=== PATIENT | female | born 1990 | race Caucasian/White ===

== ENCOUNTER 2018-12-18 19:54 | Emergency (ER) | payer SELFPAY ==
[~2018-12-18] VITALS: Ht 152.4 cm; Wt 73.9 kg
[~2018-12-18 19:54] MED LIST: ABILIFY5 MG PO; CEPHALEXIN500 MG PO; CLINDAMYCIN HC300 MG PO; CRUTCH1 EACH; CYCLOBENZAPRINE10 MG PO; DEPO-PROVE150 MG/1 M IM; DOXYCYCLINE HY100 MG PO; IBUPROFEN600 MG PO; NAPROXEN500 MG PO; NEXPLANON; NORCO 5-325 TA1 EACH PO; PROZAC20 MG PO
[2018-12-18] MEDS ORDERED: PROZAC40 MG PO (20:19)
[2018-12-18] MEDS ORDERED: ABILIFY15 MG PO (20:19)
== END 2018-12-18 20:47 | disposition home or self-care (01) ==
LOC: ED 19:54
DX: S76.012A Strain of muscle, fascia and tendon of left hip, initial encounter (principal); S80.01XA Contusion of right knee, initial encounter; W22.8XXA Striking against or struck by other objects, initial encounter; F32.9 Major depressive disorder, single episode, unspecified; F41.9 Anxiety disorder, unspecified; F17.200 Nicotine dependence, unspecified, uncomplicated; Z88.5 Allergy status to narcotic agent; Z79.899 Other long term (current) drug therapy
CPT/HCPCS: 73560; 99283

== ENCOUNTER 2020-05-24 12:59 | Emergency (ER) | payer OTHER ==
[~2020-05-24] VITALS: Ht 152.4 cm; Wt 74.8 kg
[~2020-05-24 12:59] MED LIST changes: +ABILIFY15 MG PO; +HYDROXYZINE HCL50 MG PO; +MEDROXYPRO150 MG/11 IM; +PROZAC40 MG PO
[2020-05-24] MEDS ORDERED: BUSPIRONE HCL5 MG PO (13:08)
== END 2020-05-24 14:43 | disposition home or self-care (01) ==
LOC: ED 12:59
DX: S60.221A Contusion of right hand, initial encounter (principal); F32.9 Major depressive disorder, single episode, unspecified; F41.9 Anxiety disorder, unspecified; F17.200 Nicotine dependence, unspecified, uncomplicated; Z88.5 Allergy status to narcotic agent; Z79.899 Other long term (current) drug therapy; W01.0XXA Fall on same level from slipping, tripping and stumbling without subsequent striking against object, initial encounter
CPT/HCPCS: 29125; 73110; 99283-25

== ENCOUNTER 2021-01-03 15:03 | Inpatient (IN) | payer OTHER ==
[~2021-01-03] VITALS: Ht 154.9 cm; Wt 71.4 kg
[~2021-01-03 15:03] MED LIST changes: +BUSPIRONE HCL5 MG PO
[2021-01-03] MEDS ORDERED: PRAZOSIN HCL2 MG PO (15:20)
[2021-01-03] MEDS ORDERED: FLUOXETINE HCL60 MG PO (15:21)
[2021-01-04] MEDS ORDERED: REXULTI1 MG PO (09:50)
[2021-01-04] MEDS ORDERED: ARIPIPRAZOLE30 MG PO (09:51)
[2021-01-04] MEDS ORDERED: BUSPIRONE HCL15 MG PO (09:52)
--- NOTE | 2021-01-04 12:01 | EKG ---
[facility] [address] [facility] [place] [address] Signed Sinus tachycardia Prolonged QT Abnormal ECG No previous ECGs available Confirmed by CINDY VALERIO MD ([id number]) on 01/04/2021 12:01:33 PM Electronically Signed By: CINDY VALERIO MD 01/04/21 1201 PATIENT NAME: ELEAN FOSTER Electrocardiogram DATE OF : 86 PHYSICIAN: CINDY VALERIO MD REPORT #: [id number] REPORT IS CONFIDENTIAL AND NOT TO BE RELEASED WITHOUT AUTHORIZATION
[2021-01-06] MEDS ORDERED: CEFTRIAXONE2 G1 IV (13:04)
[2021-01-06] MEDS ORDERED: ALBUTEROL2.5 MG/3 M INH (13:05)
== END 2021-01-06 14:43 | disposition short-term general hospital (02) | DRG 208 ==
LOC: ED 15:03 → MS 19:02 → CCU 01-05 19:14
PROVIDERS: ADMIT Internal Medicine; ATTEND Internal Medicine
PROC: 0BH17EZ Insertion of Endotracheal Airway into Trachea, Via Natural or Artificial Opening (ICD-10-PCS; principal; 2021-01-06)
PROC: 5A1935Z Respiratory Ventilation, Less than 24 Consecutive Hours (ICD-10-PCS; 2021-01-06)
DX: J15.4 Pneumonia due to other streptococci (principal); J80 Acute respiratory distress syndrome; N17.9 Acute kidney failure, unspecified; Z20.822 Contact with and (suspected) exposure to COVID-19; N14.1 Nephropathy induced by other drugs, medicaments and biological substances; T50.8X5A Adverse effect of diagnostic agents, initial encounter; R79.89 Other specified abnormal findings of blood chemistry; F41.8 Other specified anxiety disorders; Y92.239 Unspecified place in hospital as the place of occurrence of the external cause; Z91.14 Patient's other noncompliance with medication regimen; Z88.5 Allergy status to narcotic agent; Z79.899 Other long term (current) drug therapy; Z87.891 Personal history of nicotine dependence
CPT/HCPCS: 31500; 36415; 36600; 71045; 71260; 80048; 80053; 82570; 82803; 83605; 83880; 84300; 84703; 85025; 85379; 87040; 93005; 93010; 94002; 94640; 94660; 94667; 94668; 94760; 94762; 94799; 99285-25; C9803; J0330; J0456; J0696; J1650; J1940; J2001; J2250; J2550; J2704; J3370; J3480; J7060; Q9967; U0003

== ENCOUNTER 2023-02-12 20:12 | Emergency (ER) | payer OTHER ==
[~2023-02-12] VITALS: Ht 154.9 cm; Wt 64.0 kg
[~2023-02-12 20:12] MED LIST changes: +ALBUTEROL2.5 MG/3 M INH; +ARIPIPRAZOLE30 MG PO; +BUSPIRONE HCL15 MG PO; +CEFTRIAXONE2 G1 IV; +FLUOXETINE HCL60 MG PO; +PRAZOSIN HCL2 MG PO; +REXULTI1 MG PO
[2023-02-12 20:53] VITALS: BP 110/83
== END 2023-02-12 20:53 | disposition home or self-care (01) ==
LOC: ED 20:12
DX: M72.2 Plantar fascial fibromatosis (principal); Z87.891 Personal history of nicotine dependence; Z88.5 Allergy status to narcotic agent
CPT/HCPCS: 99283

== ENCOUNTER 2023-04-10 07:49 | Day surgery (SDC) | payer OTHER ==
[2023-04-04 11:40] VITALS: BP 119/78
[~2023-04-10] VITALS: Ht 154.9 cm; Wt 59.1 kg
--- NOTE | ~2023-04-10 | OR ---
[facility] [address] [facility] [place] [address] Draft DATE OF OPERATION: 04/10/2023 SURGEON: Hung Hernández MD PREOPERATIVE DIAGNOSIS: Chronic tonsillitis. POSTOPERATIVE DIAGNOSIS: Chronic tonsillitis. PROCEDURE: Tonsillectomy. 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 PREOPERATIVE HISTORY: Ms. Shields is a 32-year-old lady with chronic tonsillitis, multiple infections, persistent continued symptoms despite adequate medical regimen. She is taken to the operating for the above-mentioned procedures. OPERATIVE PROCEDURE AND FINDINGS: After informed consent, the patient was taken to the operating room, placed in supine position where general orotracheal anesthesia was induced. The patient and procedure were verified. The patient was repositioned. McIvor mouth gag placed into suspension. Headlight exam of the pharynx showed relatively small cryptic tonsils. Left tonsil was grasped with a tenaculum, retracted medially and removed from its fossa with mucosal sparing incisions with Coblation. The field was dry after the procedure. Same procedure on the right tonsil. Tonsils were sent to pathology. The mouth gag was released for several minutes. Reinspection showed no bleeding points. The pharynx was suctioned clear of blood and secretions. Mouth gag was removed. The patient was awakened, extubated, transported to recovery room in good condition. No complications. BLOOD LOSS: Minimal. SPECIMEN: To pathology. DRAINS: PATIENT NAME: ELENA SHIELDS OPERATIVE REPORT DATE OF : 86 REPORT #: [id number] PHYSICIAN: HUNG HERNÁNDEZ MD PCP: JOSÉ LUIS GIBSON PAC REPORT IS CONFIDENTIAL AND NOT TO BE RELEASED WITHOUT AUTHORIZATION [address] [place], [place] [address] [facility]. Hung Hernández MD /[facility] /[id number] Copies: ~ PATIENT NAME: ELENA SHIELDS OPERATIVE REPORT DATE OF : 86 REPORT #: [id number] PHYSICIAN: HUNG HERNÁNDEZ MD PCP: JOSÉ LUIS GIBSON PAC REPORT IS CONFIDENTIAL AND NOT TO BE RELEASED WITHOUT AUTHORIZATION
[2023-04-10 08:16] VITALS: BP 111/72
--- NOTE | 2023-04-10 11:24 | NUR ---
[facility]23 [facility] ARRIVED IN PACU LAYING ON L SIDE, THEN STARTED TO ROLL AROUND IN THE BED. ATTEMPTED TO RE ORIENT PT WITH NO SUCCESS. 1105 LAYING ON R SIDE AND RESTING AT THIS TIME. BILAT PILLOWS ON EACH SIDE OF PT.
[2023-04-10 11:34] VITALS: BP 106/68
--- NOTE | 2023-04-10 11:36 | NUR ---
PT ARRIVES TO UNIT VIA STRETCHER FROM PACU. PT IS DROWSY BUT ORIENTED AT THIS TIME. REPORT RECEIVED FROM DANG ESTEVEZ W/GIRLFRIEND JUAN MIGUEL AT THE BEDSIDE. PT REPORTS NO PAIN OR NAUSEA AT THIS TIME. NO SIGNS OF BLEEDING AT THIS TIME FROM SURGICAL SITE. PT NOW RESTING W/EYES CLOSED, RESPIRATIONS EVEN AND UNLABORED, NO SIGNS OF DISTRESS, PT >90% ON RA AT THIS TIME. CALL LIGHT WITHIN REACH, NO FURTHER NEEDS AT THIS TIME.
--- NOTE | 2023-04-10 12:10 | NUR ---
IN PT ROOM FOR PAIN ASSESSMENT. PT REMAINS DROWSY BUT REPORTS NO PAIN OR NAUSEA AT THIS TIME. ORANGE POPSICLE PROVIDED AT PT REQUEST. GIRLFRIEND AT BEDSIDE, CALL LIGHT WITHIN REACH, NO FURTHER NEED AT THIS TIME.
[2023-04-10 12:34] VITALS: BP 104/74
--- NOTE | 2023-04-10 12:36 | NUR ---
PT EATING POPSICLE WITHOUT DIFFICULTY SWALLOWING, NO SIGNS OF BLEEDING AT THIS TIME. PT REPORTS PAIN 3/10 AND STATES THIS IS TOLERABLE AT THIS TIME, PT STATES NO NEED FOR PRN MED AT THIS TIME. VS TAKEN. PT STANDS AT BEDSIDE AND REPORTS NO DIZZINESS OR NAUSEA. STANDBY ASSIST W/AMBULATION TO RESTROOM. PT VOIDS 250 ML OF CLEAR/YELLOW URINE AT THIS TIME. PT GETTING DRESSED AT THIS TIME, GIRLFRIEND IN ROOM FOR ASSISTANCE, CALL LIGHT WITHIN REACH.
--- NOTE | 2023-04-10 12:50 | NUR ---
IN PT ROOM FOR DISCHARGE EDUCATION TO PT AND TO PT GIRLFRIEND. PT AND PT GIRLFRIEND STATE VERBAL UNDERSTANDING AND NO FURTHER QUESTIONS AT THIS TIME. ALL BELONGINGS IN PT POSSESSION AT THIS TIME. PT OFF OF UNIT BY THIS RN VIA WC TO PASSENGER SIDE OF GIRLFRIEND'S VEHICLE. PT AND PT GIRLFRIEND STATE NO FURTHER NEEDS AT THIS TIME.
--- NOTE | 2023-04-12 14:13 | PATH ---
[facility] [address] [place], [place] [address] Signed SPECIMEN(S): A BILATERAL TONSILS SPECIMEN SOURCE: A. BILATERAL TONSILS CLINICAL HISTORY: Pre: Hx of strep throat. Post: Tonsillectomy. FINAL PATHOLOGIC DIAGNOSIS: Bilateral tonsils: - [place] tonsils with focal acute epithelial inflammation (tonsillitis). 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 JVR:[facility] MICROSCOPIC EXAMINATION: Histologic sections of all submitted blocks are examined by light microscopy. These findings, together with the gross examination, support the pathologic diagnosis. GROSS DESCRIPTION: The specimen, labeled and designated "Shields, bilateral tonsils" and designated on the requisition "R and L tonsils," is received in formalin and consists of two red-brown to pink-cruz undesignated tonsils (2.7 x 2.0 x 1.5 cm and 2.7 x 2.0 x 1.5 cm). One of the tonsils is arbitrarily inked blue. Both tonsils are serially sectioned to reveal red-brown pink-cruz convoluted cut surfaces. A medical detail representative section of each tonsil is submitted in cassette (A1). VB (under the direct supervision of a pathologist) The Gross Description was prepared using a voice recognition system. The report was reviewed for accuracy; however, sound-alike word errors, addition and/or deletions may occur. If there is any question about this report, please contact Client Services. PERFORMING LABORATORY: Technical component was performed by [employer], [address] [place] [id number] (CLIA# [id number]). Professional interpretation was performed by [facility], [address] [place] [id number] (CLIA#: [id number]). Diagnostician: Guilherme Morrell MD Pathologist PATIENT NAME: ELENA SHIELDS PATHOLOGY DATE OF : 86 REPORT #: [id number] PHYSICIAN: [facility] PCP: JOSÉ LUIS GIBSON PAC REPORT IS CONFIDENTIAL AND NOT TO BE RELEASED WITHOUT AUTHORIZATION [address] [place] [address] Signed Electronically Signed 04/12/2023 Copies: ~ PATIENT NAME: ELENA SHIELDS PATHOLOGY DATE OF : 86 REPORT #: [id number] PHYSICIAN: [facility] PATHOLOG[facility] PCP: JOSÉ LUIS GIBSON PAC REPORT IS CONFIDENTIAL AND NOT TO BE RELEASED WITHOUT AUTHORIZATION
== END 2023-04-10 13:00 | disposition home or self-care (01) ==
LOC: OPS 07:49 → DS 07:49 → OPS 09:00
PROVIDERS: ATTEND Otolaryngology
PROC: 0CBPXZZ Excision of Tonsils, External Approach (ICD-10-PCS; principal; 2023-04-10 10:15)
DX: J35.01 Chronic tonsillitis (principal)
CPT/HCPCS: 00170; 88304; J0131; J1100; J2001; J2250; J2405; J2704; J3010; J3490; J7121

== ENCOUNTER 2025-04-21 06:00 | Day surgery (SDC) | payer OTHER | END 2025-04-21 12:58 | disposition home or self-care (01) | LOC: DS 06:00 | PROC: 0UPD0HZ Removal of Contraceptive Device from Uterus and Cervix, Open Approach (ICD-10-PCS; principal; 2025-04-21) | PROC: 0UDB8ZZ Extraction of Endometrium, Via Natural or Artificial Opening Endoscopic (ICD-10-PCS; 2025-04-21) | PROC: 0UT74ZZ Resection of Bilateral Fallopian Tubes, Percutaneous Endoscopic Approach (ICD-10-PCS; 2025-04-21) | DX: N83.8 Other noninflammatory disorders of ovary, fallopian tube and broad ligament (principal); N93.9 Abnormal uterine and vaginal bleeding, unspecified; N84.0 Polyp of corpus uteri; N94.89 Other specified conditions associated with female genital organs and menstrual cycle; Z88.5 Allergy status to narcotic agent ==